=== PATIENT | female | born 2000 | race Two or more races ===

== ENCOUNTER 2022-12-27 00:11 | Emergency (ER) | payer OTHER ==
[~2022-12-27] VITALS: Ht 162.6 cm; Wt 120.9 kg
[2022-12-27] MEDS ORDERED: MACR100C43 PO (02:01)
[2022-12-27] MEDS ORDERED: METR0.759 PV (02:23)
[2022-12-27] MEDS ORDERED: NITROFURANTOIN (MACROBID) 100 MG CAP PO ONE (02:25)
[2022-12-27 02:45] VITALS: BP 130/69
[2022-12-27 03:10] LABS: GC DNA AMPLIFICATION NEGATIVE (NEGATIVE)
== END 2022-12-27 02:48 | disposition home or self-care (01) ==
LOC: M ED 00:11
DX: N39.0 Urinary tract infection, site not specified (principal); N76.0 Acute vaginitis; Z88.1 Allergy status to other antibiotic agents; Z79.899 Other long term (current) drug therapy